=== PATIENT | male | born 1960 | race African-American/Black ===

== ENCOUNTER 2021-01-04 10:47 | Day surgery (SDC) | payer OTHER ==
[2020-12-28 15:45] VITALS: BMI 26.3
[2021-01-04] MEDS ORDERED: PROPOFOL 20 ML ONE ×5 (12:16)
[2021-01-04 13:09] VITALS: TEMP 97.8
[2021-01-04 14:24] VITALS: BP 116/74; PULSE 75
== END 2021-01-04 14:00 | disposition home or self-care (01) ==
LOC: FASU 10:47
PROVIDERS: ATTEND Internal Medicine Gastroenterology
PROC: 0DB78ZX Excision of Stomach, Pylorus, Via Natural or Artificial Opening Endoscopic, Diagnostic (ICD-10-PCS; 2021-01-04)
PROC: 0DB48ZX Excision of Esophagogastric Junction, Via Natural or Artificial Opening Endoscopic, Diagnostic (ICD-10-PCS; principal; 2021-01-04 12:45)
DX: K29.50 Unspecified chronic gastritis without bleeding (principal); K21.9 Gastro-esophageal reflux disease without esophagitis; K22.8 Other specified diseases of esophagus; K22.70 Barrett's esophagus without dysplasia; K31.89 Other diseases of stomach and duodenum
CPT/HCPCS: 88305-TC; 88342-TC

== ENCOUNTER 2021-04-24 04:28 | Day surgery (SDC) | payer OTHER ==
[2021-04-23 12:54] VITALS: BMI 25.7
[2021-04-24] MEDS ORDERED: ROPIVACAINE HCL 0.5% 30ML VIAL ONE (08:49)
[2021-04-24] MEDS ORDERED: MIDAZOLAM HCL 2 MG/2 ML SINGLE DOSE VIAL ONE ×2 (08:50)
[2021-04-24] MEDS ORDERED: PROPOFOL 20 ML ONE ×2 (09:19)
[2021-04-24] MEDS ORDERED: LIDOCAINE HCL/PF 2% SDV 5ML VIAL ONE (09:20)
[2021-04-24] MEDS ORDERED: DEXAMETHASONE SOD PHOSPHATE 4 MG/1 ML VIAL ONE (09:20)
[2021-04-24] MEDS ORDERED: ceFAZolin SODIUM 1 GM VIAL ONE (09:42)
[2021-04-24] MEDS ORDERED: ceFAZolin 2 GRAM PREMIX BAG IVPB ONE (09:53)
[2021-04-24] MEDS ORDERED: ONDANSETRON 4 MG/2 ML VIAL IVPUSH PRN (10:45)
[2021-04-24] MEDS ORDERED: LACTATED RINGERS SOLUTION 1,000 ML IV SCH (10:45)
[2021-04-24] MEDS ORDERED: oxyCODONE HCL 5 MG TABLET PO PRN ×2 (10:45)
[2021-04-24] MEDS: LABETALOL HCL 5 MG/1 ML (100MG/20 ML VIAL) IVPUSH PRN ×2 (11:20→11:30)
[2021-04-24 13:05] VITALS: TEMP 97.2
[2021-04-24 13:51] VITALS: BP 156/88; PULSE 83
== END 2021-04-24 14:00 | disposition home or self-care (01) ==
LOC: JASU-SURG 04:28
PROVIDERS: ATTEND Orthopaedic Surgery
PROC: 0RNK4ZZ Release Left Shoulder Joint, Percutaneous Endoscopic Approach (ICD-10-PCS; 2021-04-24)
PROC: 0LQ24ZZ Repair Left Shoulder Tendon, Percutaneous Endoscopic Approach (ICD-10-PCS; principal; 2021-04-24 09:30)
PROC: 0LU24JZ Supplement Left Shoulder Tendon with Synthetic Substitute, Percutaneous Endoscopic Approach (ICD-10-PCS; 2021-04-24 09:30)
DX: M75.102 Unspecified rotator cuff tear or rupture of left shoulder, not specified as traumatic (principal)
CPT/HCPCS: 36415; 84132; 94760

== ENCOUNTER 2021-05-31 05:04 | Day surgery (SDC) | payer OTHER ==
[2021-05-29 10:02] VITALS: BMI 26.7
[~2021-05-31 05:04] MED LIST: HEPARIN NA (PORCINE) 5,000 UNITS/ML 1ML VIAL SQ ONE; LIDOCAINE HCL 1%, 10 MG/ML (50 mL VIAL) PNB ONE
[2021-05-31] MEDS ORDERED: LIDOCAINE HCL 1%, 10 MG/ML (20ML VIAL) ONE (13:03)
[2021-05-31] MEDS ORDERED: HEPARIN NA (PORCINE) 5,000 UNITS/ML 1ML VIAL ONE (13:03)
[2021-05-31] MEDS ORDERED: PAPAVERINE HCL 30 MG/1 ML 10 ML VIAL NR ONE (13:03)
[2021-05-31] MEDS ORDERED: POVIDONE-IODINE OINTMENT 10% - 28.4 GM TUBE ONE (13:17)
[2021-05-31 13:56] LABS: BASO % 0.5 % (0-2.0); HEMATOCRIT 32.6 % (35.4-49); HEMOGLOBIN 10.3 GM/dL (11.7-16.9); LYMPH % 22.8 % (8-40); MCH 24.7 pg (25.7-33.7); MCHC 31.7 g/dl (32.0-35.9); MEAN CELL VOLUME 77.7 fl (80-96); MEAN PLT VOLUME 7.3 fl (7.5-11.1); MONO % 8.7 % (3.8-10.2); PLATELET COUNT 265 10^3/uL (134-434); RDW 18.6 % (11.9-15.9); WHITE BLOOD COUNT 5.2 K/mm3 (4.0-10.0)
[2021-05-31] MEDS ORDERED: LIDOCAINE HCL/PF 2% SDV 5ML VIAL ONE (14:10)
[2021-05-31] MEDS ORDERED: PROPOFOL 20 ML ONE (14:10)
[2021-05-31] MEDS ORDERED: ceFAZolin SODIUM 1 GM VIAL ONE (14:15)
[2021-05-31] MEDS ORDERED: LIDOCAINE HCL 1%, 10 MG/ML (50 mL VIAL) PNB ONE ×2 (14:35)
[2021-05-31] MEDS ORDERED: HEPARIN NA (PORCINE) 5,000 UNITS/ML 1ML VIAL SQ ONE (14:35)
[2021-05-31] MEDS ORDERED: ACETAMINOPHEN WITH CODEINE 300MG/30MG TABLET PO PRN (16:56)
[2021-05-31] MEDS ORDERED: ONDANSETRON 4 MG/2 ML VIAL IVPUSH PRN (17:34)
[2021-05-31] MEDS ORDERED: oxyCODONE HCL 5 MG TABLET PO PRN (17:34)
[2021-05-31] MEDS ORDERED: oxyCODONE HCL 5 MG TABLET ONE (17:40)
[2021-05-31 17:48] VITALS: PULSE 80
[2021-05-31 18:33] VITALS: BP 150/80; TEMP 98
== END 2021-05-31 18:30 | disposition home or self-care (01) ==
LOC: JASU-SURG 05:04
PROVIDERS: ATTEND Surgery
PROC: 05WY03Z Revision of Infusion Device in Upper Vein, Open Approach (ICD-10-PCS; principal; 2021-05-31 15:00)
DX: T82.858A Stenosis of other vascular prosthetic devices, implants and grafts, initial encounter (principal); Y83.2 Surgical operation with anastomosis, bypass or graft as the cause of abnormal reaction of the patient, or of later complication, without mention of misadventure at the time of the procedure; I12.0 Hypertensive chronic kidney disease with stage 5 chronic kidney disease or end stage renal disease; N18.6 End stage renal disease; Z99.2 Dependence on renal dialysis
CPT/HCPCS: 36415; 84132; 85025; 94760; J1644

== ENCOUNTER 2022-03-21 10:29 | Day surgery (SDC) | payer OTHER, BC ==
[2022-03-19 15:41] VITALS: BMI 25.7
[2022-03-21 11:27] VITALS: TEMP 97.8
[2022-03-21 11:49] VITALS: BP 106/69; PULSE 67
== END 2022-03-21 13:00 | disposition left against medical advice (07) ==
LOC: FASU-ENDO 10:29
PROVIDERS: ATTEND Internal Medicine Gastroenterology
PROC: 0DJD8ZZ Inspection of Lower Intestinal Tract, Via Natural or Artificial Opening Endoscopic (ICD-10-PCS; principal; 2022-03-21 10:56)
DX: Z12.11 Encounter for screening for malignant neoplasm of colon (principal); K64.1 Second degree hemorrhoids; K57.30 Diverticulosis of large intestine without perforation or abscess without bleeding

== ENCOUNTER 2023-11-25 10:56 | Inpatient (IN) | payer OTHER, BC ==
[2023-11-25 12:54] LABS: INR 1.12 (0.83-1.09)
[2023-11-25 12:57] LABS: ACTIVATED PTT 30.9 SECONDS (25.2-36.5)
[2023-11-25 12:59] LABS: MCH 21.4 pg (25.7-33.7); MCHC 31.4 g/dl (32.0-35.9); MEAN CELL VOLUME 68.2 fl (80-96); MEAN PLT VOLUME 8.3 fl (7.5-11.1); PLATELET COUNT 269 10^3/uL (134-434); RBC 2.64 M/mm3 (4.00-5.60); RDW 24.1 % (11.9-15.9)
[2023-11-25 13:05] LABS: HEMOGLOBIN 5.7 GM/dL (11.7-16.9)
[2023-11-25] MEDS ORDERED: ACETAMINOPHEN WITH CODEINE 300MG/30MG TABLET PO PRN (13:22)
[2023-11-25 13:26] LABS: CHLORIDE 104 mmol/L (98-107); POTASSIUM 5.1 mmol/L (3.5-5.1); SODIUM 141 mmol/L (136-145)
[2023-11-25 13:28] LABS: ANION GAP 12 mmol/L (4-13); BLOOD UREA NITROGEN 59.7 mg/dL (7-18); CALCIUM 8.1 mg/dL (8.5-10.1); CO2 26 mmol/L (21-32); GLUCOSE,RANDOM 98 mg/dL (74-106)
[2023-11-25 13:32] LABS: SGOT/AST 32 U/L (15-37); SGPT/ALT 40 U/L (13-61)
[2023-11-25 13:33] LABS: BILIRUBIN,TOTAL 0.3 mg/dL (0.2-1); TOT PROT 6.4 g/dl (6.4-8.2)
[2023-11-25 13:34] LABS: ALK PHOS 88 U/L (45-117)
[2023-11-25 13:37] LABS: CREATININE 16.3 mg/dL (0.55-1.3)
[2023-11-25] MEDS ORDERED: SODIUM CHLORIDE 250 ML IV PRN (13:48)
[2023-11-25 13:49] LABS: ANISOCYTOSIS 2+; MACROCYTOSIS 0
[2023-11-25 13:50] LABS: PLATELET ESTIMATE ADEQUATE
[2023-11-25] MEDS ORDERED: PREGABALIN 100 MG CAPSULE PO SCH (14:00)
[2023-11-25] MEDS ORDERED: FUROSEMIDE 40 MG/4 ML INJECTABLE VIAL ONE (14:06)
[2023-11-25] MEDS: FUROSEMIDE 40 MG/4 ML INJECTABLE VIAL IVPUSH ONE (14:09)
[2023-11-25 14:32] LABS: IRON SERUM 15 ug/dL (50-175); TOTAL IRON BINDING CAPACITY 284 ug/dL (250-450)
[2023-11-25] MEDS ORDERED: amLODIPine BESYLATE 10 MG TABLET (FP) ONE (21:39)
[2023-11-25] MEDS ORDERED: ATORVASTATIN CA 10 MG TABLET (FP) ONE (21:40)
[2023-11-25] MEDS ORDERED: ALPRAZolam 0.25 MG TABLET ONE (21:46)
[2023-11-25] MEDS: ATORVASTATIN CA 10 MG TABLET (FP) PO SCH (21:51)
[2023-11-25] MEDS: amLODIPine BESYLATE 10 MG TABLET (FP) PO SCH (21:51)
[2023-11-25] MEDS: ALPRAZolam 0.25 MG TABLET PO SCH (21:52)
[2023-11-25] MEDS: GABAPENTIN 100 MG CAPSULE PO SCH (22:32)
[2023-11-26 00:05] LABS: HEMATOCRIT 22.3 % (35.4-49); HEMOGLOBIN 7.2 GM/dL (11.7-16.9); MCH 22.8 pg (25.7-33.7); MCHC 32.4 g/dl (32.0-35.9); MEAN CELL VOLUME 70.5 fl (80-96); MEAN PLT VOLUME 7.7 fl (7.5-11.1); PLATELET COUNT 247 10^3/uL (134-434); RBC 3.16 M/mm3 (4.00-5.60); RDW 23.8 % (11.9-15.9); WHITE BLOOD COUNT 5.5 K/mm3 (4.0-10.0)
[2023-11-26 00:09] LABS: ADD RBC MORPHOLOGY YES
[2023-11-26] MEDS: FLUoxetine HCL 20 MG CAPSULE PO SCH (00:34)
[2023-11-26] MEDS: CALCIUM ACETATE 667 MG CAPSULE (FP) PO SCH ×2 (00:34→17:13)
[2023-11-26 03:21] LABS: ANISOCYTOSIS 2+; HELMET CELLS 1+; MACROCYTOSIS 0
[2023-11-26] MEDS ORDERED: PANTOPRAZOLE 40 MG TABLET PO ONE (07:15)
[2023-11-26 07:52] LABS: CHLORIDE 104 mmol/L (98-107); POTASSIUM 4.3 mmol/L (3.5-5.1); SODIUM 142 mmol/L (136-145)
[2023-11-26 07:57] LABS: ALBUMIN 2.9 g/dl (3.4-5.0); ANION GAP 10 mmol/L (4-13); BLOOD UREA NITROGEN 37.6 mg/dL (7-18); CALCIUM 7.9 mg/dL (8.5-10.1); CO2 29 mmol/L (21-32); GLUCOSE,RANDOM 85 mg/dL (74-106)
[2023-11-26 08:00] LABS: SGOT/AST 25 U/L (15-37); SGPT/ALT 37 U/L (13-61)
[2023-11-26 08:02] LABS: BILIRUBIN,TOTAL 0.4 mg/dL (0.2-1); HEMATOCRIT 23.2 % (35.4-49); HEMOGLOBIN 7.4 GM/dL (11.7-16.9); MCH 22.4 pg (25.7-33.7); MCHC 32.1 g/dl (32.0-35.9); MEAN CELL VOLUME 69.6 fl (80-96); MEAN PLT VOLUME 8.4 fl (7.5-11.1); PLATELET COUNT 275 10^3/uL (134-434); RBC 3.32 M/mm3 (4.00-5.60); RDW 23.6 % (11.9-15.9); TOT PROT 6.1 g/dl (6.4-8.2); WHITE BLOOD COUNT 5.5 K/mm3 (4.0-10.0)
[2023-11-26 08:03] LABS: ALK PHOS 87 U/L (45-117)
[2023-11-26 08:27] LABS: CREATININE 11.1 mg/dL (0.55-1.3)
[2023-11-26] MEDS: PANTOPRAZOLE 40 MG TABLET PO SCH (08:29)
[2023-11-26 09:15] LABS: ANISOCYTOSIS 2+; MACROCYTOSIS 0
[2023-11-26] MEDS ORDERED: FUROSEMIDE 40 MG TABLET (FP) PO SCH (10:00)
[2023-11-26] MEDS ORDERED: NAPH,MB-DB/K PH,MBDB POWDER PACKET ONE (12:38)
[2023-11-26 16:16] VITALS: BMI 21.7
[2023-11-27] MEDS ORDERED: SODIUM CHLORIDE 250 ML IV PRN (08:14)
[2023-11-27 08:42] LABS: HEMATOCRIT 21.3 % (35.4-49); MCH 22.1 pg (25.7-33.7); MCHC 31.6 g/dl (32.0-35.9); MEAN CELL VOLUME 69.8 fl (80-96); MEAN PLT VOLUME 8.4 fl (7.5-11.1); PLATELET COUNT 235 10^3/uL (134-434); RBC 3.06 M/mm3 (4.00-5.60); RDW 23.9 % (11.9-15.9); WHITE BLOOD COUNT 6.4 K/mm3 (4.0-10.0)
[2023-11-27 08:53] LABS: HEMOGLOBIN 6.7 GM/dL (11.7-16.9)
[2023-11-27 08:54] LABS: CHLORIDE 103 mmol/L (98-107); POTASSIUM 4.5 mmol/L (3.5-5.1); SODIUM 140 mmol/L (136-145)
[2023-11-27 08:58] LABS: ALBUMIN 2.8 g/dl (3.4-5.0); CALCIUM 8.2 mg/dL (8.5-10.1)
[2023-11-27 08:59] LABS: ANION GAP 12 mmol/L (4-13); BLOOD UREA NITROGEN 52.3 mg/dL (7-18); CO2 25 mmol/L (21-32); GLUCOSE,RANDOM 89 mg/dL (74-106)
[2023-11-27 09:01] LABS: SGPT/ALT 35 U/L (13-61)
[2023-11-27 09:02] LABS: SGOT/AST 19 U/L (15-37)
[2023-11-27 09:03] LABS: ALK PHOS 78 U/L (45-117); TOT PROT 5.7 g/dl (6.4-8.2)
[2023-11-27 09:04] LABS: BILIRUBIN,TOTAL 0.4 mg/dL (0.2-1)
[2023-11-27 09:06] LABS: CREATININE 12.3 mg/dL (0.55-1.3)
[2023-11-27] MEDS: IRON SUCROSE INJECTION 200 MG in SODIUM CHLORIDE 90 ML IVPB ONE (09:46)
[2023-11-27] MEDS: EPOETIN ALFA-EPBX 10,000 UNIT/ML VIAL SQ ONE (09:46)
[2023-11-27 12:12] LABS: BASO % 0.9 % (0-2.0); HEMOGLOBIN 8.4 GM/dL (11.7-16.9); LYMPH % 10.5 % (8-40); MCH 22.6 pg (25.7-33.7); MCHC 31.1 g/dl (32.0-35.9); MEAN CELL VOLUME 72.6 fl (80-96); MEAN PLT VOLUME 8.1 fl (7.5-11.1); MONO % 8.9 % (3.8-10.2); NEUT % 78.7 % (42.8-82.8); PLATELET COUNT 244 10^3/uL (134-434); RBC 3.72 M/mm3 (4.00-5.60); RDW 24.4 % (11.9-15.9); WHITE BLOOD COUNT 7.2 K/mm3 (4.0-10.0)
[2023-11-27 13:43] VITALS: RESP 18; TEMP 97.6
[2023-11-27 13:59] VITALS: BP 194/99; PULSE 97
== END 2023-11-27 18:52 | disposition left against medical advice (07) | DRG 811 ==
LOC: JER 10:56 → JERBED 14:16 → J8W 11-26 14:58
PROVIDERS: ADMIT Internal Medicine; ATTEND Internal Medicine
PROC: 30233N1 Transfusion of Nonautologous Red Blood Cells into Peripheral Vein, Percutaneous Approach (ICD-10-PCS; principal; 2023-11-25)
PROC: 5A1D70Z Performance of Urinary Filtration, Intermittent, Less than 6 Hours Per Day (ICD-10-PCS; 2023-11-25)
DX: D50.9 Iron deficiency anemia, unspecified (principal); N18.6 End stage renal disease; I12.0 Hypertensive chronic kidney disease with stage 5 chronic kidney disease or end stage renal disease; E11.9 Type 2 diabetes mellitus without complications; Z99.2 Dependence on renal dialysis; E78.5 Hyperlipidemia, unspecified; F41.8 Other specified anxiety disorders
CPT/HCPCS: 36415; 36430; 80053; 82728; 83540; 83550; 85025; 85027; 85610; 85730; 86704; 86705; 86803; 86850; 86900; 86901; 86922; 87340; 87517; 93005; 93010; 99285-25; J1756; P9058; Q5106

== ENCOUNTER 2024-02-26 09:11 | Day surgery (SDC) | payer OTHER ==
[2024-02-22 15:40] VITALS: BMI 23.5
[2024-02-26 10:51] VITALS: PULSE 73; RESP 16; TEMP 97.4
[2024-02-26 11:07] VITALS: BP 158/82
== END 2024-02-26 11:25 | disposition home or self-care (01) ==
LOC: FASU-ENDO 09:11
PROVIDERS: ATTEND Internal Medicine Gastroenterology
PROC: 0DB68ZX Excision of Stomach, Via Natural or Artificial Opening Endoscopic, Diagnostic (ICD-10-PCS; 2024-02-26)
PROC: 0DB48ZX Excision of Esophagogastric Junction, Via Natural or Artificial Opening Endoscopic, Diagnostic (ICD-10-PCS; principal; 2024-02-26 10:20)
DX: K31.9 Disease of stomach and duodenum, unspecified (principal); K92.1 Melena; K26.9 Duodenal ulcer, unspecified as acute or chronic, without hemorrhage or perforation
CPT/HCPCS: 88305-TC; 88342-TC

== ENCOUNTER 2024-06-05 16:21 | Inpatient (IN) | payer BC, OTHER ==
[2024-06-05 18:08] LABS: BASO % 0.7 % (0-2.0); EOS % 2.4 % (0-4.5); HEMATOCRIT 25.5 % (35.4-49); HEMOGLOBIN 7.8 GM/dL (11.7-16.9); LYMPH % 9.2 % (8-40); MCH 21.6 pg (25.7-33.7); MCHC 30.8 g/dl (32.0-35.9); MEAN CELL VOLUME 70.2 fl (80-96); NEUT % 72.7 % (42.8-82.8); PLATELET COUNT 232 10^3/uL (134-434); RBC 3.63 M/mm3 (4.00-5.60); WHITE BLOOD COUNT 5.9 K/mm3 (4.0-10.0)
[2024-06-05 18:40] LABS: CHLORIDE 106 mmol/L (98-107); POTASSIUM 3.6 mmol/L (3.5-5.1); SODIUM 143 mmol/L (136-145)
[2024-06-05 18:42] LABS: CALCIUM 8.5 mg/dL (8.5-10.1)
[2024-06-05 18:43] LABS: ALBUMIN 2.7 g/dl (3.4-5.0); ANION GAP 8 mmol/L (4-13); BLOOD UREA NITROGEN 29.4 mg/dL (7-18); CO2 29 mmol/L (21-32); GLUCOSE,RANDOM 62 mg/dL (74-106)
[2024-06-05 18:46] LABS: SGOT/AST 11 U/L (15-37); SGPT/ALT < 6 U/L (13-61)
[2024-06-05 18:48] LABS: BILIRUBIN,TOTAL 0.3 mg/dL (0.2-1); TOT PROT 6.4 g/dl (6.4-8.2)
[2024-06-05 18:49] LABS: ALK PHOS 85 U/L (45-117)
[2024-06-05 18:50] LABS: CREATININE 7.9 mg/dL (0.55-1.3)
[2024-06-05 19:32] LABS: HIV INTERPRETATION NEGATIVE (NEGATIVE)
[2024-06-05] MEDS ORDERED: PIPERACILLIN/TAZOB 4.5 GM 4.5 GM/100 ML BAG IVPB ONE (20:27)
[2024-06-05] MEDS: PIPERACILLIN/TAZOB 4.5 GM 4.5 GM in DEXTROSE 5%-WATER 100 ML IVPB ONE (20:40)
[2024-06-05] MEDS ORDERED: VANCOMYCIN/WATER 1250 MG 1,250 MG/250 ML BAG IVPB ONE (21:03)
[2024-06-05] MEDS: VANCOMYCIN/WATER 1250 MG 1,250 MG/250 ML BAG IVPB ONE (21:12)
[2024-06-05 21:15] LABS: ERYTHROCYTE SEDIMENTATION RATE 44 mm/hr (0-20)
[2024-06-05] MEDS ORDERED: DOCUSATE SODIUM 100 MG CAPSULE (FP) PO PRN (22:20)
[2024-06-05] MEDS ORDERED: ACETAMINOPHEN 325 MG TABLET (FP) PO PRN (22:20)
[2024-06-06] MEDS ORDERED: PIPERACILLIN/TAZOB 2.25 GM 2.25 GM in DEXTROSE 5%-WATER - 50 ML IVPB SCH (02:00)
[2024-06-06] MEDS ORDERED: PIPERACILLIN/TAZOB 2.25 GM 2.25 GM/50 ML BAG IVPB ONE (03:05)
[2024-06-06] MEDS: PIPERACILLIN/TAZOB 2.25 GM 2.25 GM in DEXTROSE 5%-WATER - 50 ML IVPB SCH (03:18)
[2024-06-06] MEDS: oxyCODONE HCL 5 MG TABLET PO PRN (05:33)
[2024-06-06] MEDS: INSULIN ASPART SLIDING SCALE (NOVOLOG) 1 VIAL SQ SCH (06:46)
[2024-06-06 09:21] LABS: BASO % 0.7 % (0-2.0); EOS % 2.6 % (0-4.5); HEMATOCRIT 25.7 % (35.4-49); MCH 22.1 pg (25.7-33.7); MCHC 31.1 g/dl (32.0-35.9); MEAN CELL VOLUME 70.9 fl (80-96); MEAN PLT VOLUME 8.2 fl (7.5-11.1); MONO % 12.1 % (3.8-10.2); NEUT % 72.6 % (42.8-82.8); PLATELET COUNT 233 10^3/uL (134-434); RBC 3.62 M/mm3 (4.00-5.60); RDW 29.7 % (11.9-15.9); WHITE BLOOD COUNT 5.9 K/mm3 (4.0-10.0)
[2024-06-06 09:28] LABS: INR 0.96 (0.83-1.09); PROTHROMBIN TIME (PATIENT) 10.9 SEC (9.7-13.0)
[2024-06-06 09:31] LABS: ACTIVATED PTT 30.7 SECONDS (25.2-36.5)
[2024-06-06 09:45] LABS: CHLORIDE 104 mmol/L (98-107); POTASSIUM 4.1 mmol/L (3.5-5.1); SODIUM 141 mmol/L (136-145)
[2024-06-06 09:46] LABS: BLOOD UREA NITROGEN 34.1 mg/dL (7-18)
[2024-06-06 09:48] LABS: CALCIUM 8.7 mg/dL (8.5-10.1)
[2024-06-06 09:49] LABS: ANION GAP 10 mmol/L (4-13); CO2 27 mmol/L (21-32); GLUCOSE,RANDOM 115 mg/dL (74-106); MAGNESIUM 2.3 mg/dL (1.8-2.4)
[2024-06-06] MEDS: FUROSEMIDE 40 MG TABLET (FP) PO SCH (09:51)
[2024-06-06] MEDS: PANTOPRAZOLE 40 MG TABLET PO SCH (09:51)
[2024-06-06] MEDS: CALCIUM ACETATE 667 MG CAPSULE (FP) PO SCH (09:51)
[2024-06-06 09:53] LABS: CREATININE 8.5 mg/dL (0.55-1.3); PHOSPHOROUS 3.1 mg/dL (2.5-4.9)
[2024-06-06] MEDS ORDERED: SODIUM CHLORIDE 250 ML IV PRN (10:48)
[2024-06-06] MEDS: PREGABALIN 100 MG CAPSULE PO SCH (13:37)
[2024-06-06] MEDS: HEPARIN NA (PORCINE) 5,000 UNITS/ML 1ML VIAL SQ SCH (13:38)
[2024-06-06] MEDS ORDERED: CEFTRIAXONE 2 GM in SODIUM CHLORIDE 100 ML IVPB SCH (13:45)
[2024-06-06 14:44] VITALS: RESP 18
[2024-06-06] MEDS: HEPARIN NA (PORCINE) 5,000 UNITS/ML 1ML VIAL IVPUSH ONE (17:00)
[2024-06-06] MEDS: EPOETIN ALFA-EPBX 10,000 UNIT/ML VIAL SQ ONE (19:28)
[2024-06-06] MEDS: amLODIPine BESYLATE 10 MG TABLET (FP) PO SCH (21:17)
[2024-06-06] MEDS: ATORVASTATIN CA 10 MG TABLET (FP) PO SCH (21:20)
[2024-06-06] MEDS: FLUoxetine HCL 20 MG CAPSULE PO SCH (21:20)
[2024-06-06] MEDS: CEFTRIAXONE 2 GM in SODIUM CHLORIDE 100 ML IVPB SCH (21:21)
[2024-06-06] MEDS ORDERED: amLODIPine BESYLATE 10 MG TABLET (FP) PO SCH (22:00)
[2024-06-06] MEDS ORDERED: ATORVASTATIN CA 10 MG TABLET (FP) PO SCH (22:00)
[2024-06-06] MEDS ORDERED: FLUoxetine HCL 20 MG CAPSULE PO SCH (22:00)
[2024-06-07] MEDS: KETOROLAC TROMETHAMINE 15 MG/ML VIAL IVPUSH PRN (04:54)
[2024-06-07] MEDS ORDERED: ZOLPIDEM TARTRATE 5 MG TABLET PO PRN (09:18)
[2024-06-07 09:58] LABS: BASO % 0.9 % (0-2.0); EOS % 1.9 % (0-4.5); HEMATOCRIT 29.5 % (35.4-49); HEMOGLOBIN 9.1 GM/dL (11.7-16.9); LYMPH % 9.2 % (8-40); MCH 21.9 pg (25.7-33.7); MEAN CELL VOLUME 70.7 fl (80-96); MEAN PLT VOLUME 8.1 fl (7.5-11.1); MONO % 11.9 % (3.8-10.2); NEUT % 76.1 % (42.8-82.8); PLATELET COUNT 275 10^3/uL (134-434); RBC 4.18 M/mm3 (4.00-5.60); RDW 29.3 % (11.9-15.9); WHITE BLOOD COUNT 6.1 K/mm3 (4.0-10.0)
[2024-06-07 10:18] LABS: POTASSIUM 4.2 mmol/L (3.5-5.1)
[2024-06-07 10:38] LABS: ALBUMIN 2.9 g/dl (3.4-5.0); BLOOD UREA NITROGEN 21.1 mg/dL (7-18)
[2024-06-07 10:41] LABS: CREATININE 6.1 mg/dL (0.55-1.3)
[2024-06-07 10:42] LABS: BILIRUBIN,TOTAL 0.3 mg/dL (0.2-1)
[2024-06-07 10:43] LABS: TOT PROT 7.2 g/dl (6.4-8.2)
[2024-06-07] MEDS: COLLAGENASE CLOSTRIDIUM HIST. 30 GRAMS TUBE TP SCH (13:21)
[2024-06-07] MEDS: ALPRAZolam 0.25 MG TABLET PO SCH (22:06)
[2024-06-08] MEDS ORDERED: SODIUM CHLORIDE 250 ML IV PRN (08:03)
[2024-06-08 09:16] LABS: HEMATOCRIT 25.8 % (35.4-49); HEMOGLOBIN 8.1 GM/dL (11.7-16.9); MCH 22.3 pg (25.7-33.7); MCHC 31.4 g/dl (32.0-35.9); MEAN CELL VOLUME 70.8 fl (80-96); MEAN PLT VOLUME 7.9 fl (7.5-11.1); PLATELET COUNT 239 10^3/uL (134-434); RBC 3.65 M/mm3 (4.00-5.60); RDW 29.2 % (11.9-15.9); WHITE BLOOD COUNT 5.1 K/mm3 (4.0-10.0)
[2024-06-08] MEDS: HEPARIN NA (PORCINE) 5,000 UNITS/ML 1ML VIAL IVPUSH ONE (09:29)
[2024-06-08] MEDS: EPOETIN ALFA-EPBX 10,000 UNIT/ML VIAL SQ ONE (09:30)
[2024-06-08 09:36] LABS: CHLORIDE 104 mmol/L (98-107); POTASSIUM 3.8 mmol/L (3.5-5.1); SODIUM 141 mmol/L (136-145)
[2024-06-08 09:37] LABS: CALCIUM 8.7 mg/dL (8.5-10.1)
[2024-06-08 09:38] LABS: ANION GAP 8 mmol/L (4-13); BLOOD UREA NITROGEN 29.1 mg/dL (7-18); CO2 30 mmol/L (21-32); GLUCOSE,RANDOM 106 mg/dL (74-106)
[2024-06-08 09:45] LABS: CREATININE 7.9 mg/dL (0.55-1.3)
[2024-06-08 10:56] VITALS: BMI 21.0
[2024-06-09 09:39] LABS: BASO % 0.5 % (0-2.0); EOS % 2.9 % (0-4.5); HEMATOCRIT 29.3 % (35.4-49); HEMOGLOBIN 9.1 GM/dL (11.7-16.9); LYMPH % 8.7 % (8-40); MCH 22.1 pg (25.7-33.7); MEAN CELL VOLUME 71.2 fl (80-96); MONO % 11.6 % (3.8-10.2); NEUT % 76.3 % (42.8-82.8); PLATELET COUNT 253 10^3/uL (134-434); RBC 4.11 M/mm3 (4.00-5.60); RDW 30.3 % (11.9-15.9); WHITE BLOOD COUNT 5.2 K/mm3 (4.0-10.0)
[2024-06-09 09:57] LABS: POTASSIUM 3.8 mmol/L (3.5-5.1)
[2024-06-09 10:03] LABS: ALBUMIN 2.9 g/dl (3.4-5.0); CALCIUM 8.9 mg/dL (8.5-10.1)
[2024-06-09 10:04] LABS: BLOOD UREA NITROGEN 26.5 mg/dL (7-18)
[2024-06-09 10:07] LABS: CREATININE 6.5 mg/dL (0.55-1.3)
[2024-06-09 10:08] LABS: BILIRUBIN,TOTAL 0.2 mg/dL (0.2-1); TOT PROT 7.2 g/dl (6.4-8.2)
[2024-06-09 15:36] LABS: HEPATITIS B SURFACE AG MATERN NON-REACTIVE (NONREACTIVE)
[2024-06-10] MEDS ORDERED: SODIUM CHLORIDE 250 ML IV PRN (08:23)
[2024-06-10] MEDS: HEPARIN NA (PORCINE) 5,000 UNITS/ML 1ML VIAL IVPUSH ONE (08:53)
[2024-06-10] MEDS: HEPARIN NA (PORCINE) 5,000 UNITS/ML 1ML VIAL IVPUSH SCH (09:00)
[2024-06-10] MEDS: EPOETIN ALFA-EPBX 10,000 UNIT/ML VIAL SQ ONE (09:28)
[2024-06-10 10:02] LABS: HEMATOCRIT 24.5 % (35.4-49); HEMOGLOBIN 7.7 GM/dL (11.7-16.9); MCH 22.3 pg (25.7-33.7); MCHC 31.4 g/dl (32.0-35.9); MEAN CELL VOLUME 70.9 fl (80-96); MEAN PLT VOLUME 8.1 fl (7.5-11.1); PLATELET COUNT 218 10^3/uL (134-434); RBC 3.45 M/mm3 (4.00-5.60); WHITE BLOOD COUNT 4.8 K/mm3 (4.0-10.0)
[2024-06-10 10:11] LABS: CHLORIDE 105 mmol/L (98-107); POTASSIUM 4.2 mmol/L (3.5-5.1); SODIUM 142 mmol/L (136-145)
[2024-06-10 10:16] LABS: ALBUMIN 2.6 g/dl (3.4-5.0); ANION GAP 7 mmol/L (4-13); BLOOD UREA NITROGEN 47.2 mg/dL (7-18); CALCIUM 8.6 mg/dL (8.5-10.1); CO2 30 mmol/L (21-32)
[2024-06-10 10:17] LABS: GLUCOSE,RANDOM 134 mg/dL (74-106)
[2024-06-10 10:20] LABS: SGOT/AST 16 U/L (15-37); SGPT/ALT 9 U/L (13-61)
[2024-06-10 10:21] LABS: BILIRUBIN,TOTAL 0.5 mg/dL (0.2-1)
[2024-06-10 10:22] LABS: CREATININE 8.3 mg/dL (0.55-1.3); TOT PROT 6.2 g/dl (6.4-8.2)
[2024-06-10 10:23] LABS: ALK PHOS 85 U/L (45-117)
[2024-06-10 16:52] VITALS: BP 134/82; PULSE 78; TEMP 98.4
== END 2024-06-10 18:00 | DRG 638 ==
LOC: JER 16:21 → JERBED 18:40 → OBSVTOIN 22:21 → J6S 06-06 04:21
PROVIDERS: ADMIT Internal Medicine; ATTEND Internal Medicine
PROC: 5A1D70Z Performance of Urinary Filtration, Intermittent, Less than 6 Hours Per Day (ICD-10-PCS; principal; 2024-06-10)
DX: E11.621 Type 2 diabetes mellitus with foot ulcer (principal); I12.0 Hypertensive chronic kidney disease with stage 5 chronic kidney disease or end stage renal disease; L97.419 Non-pressure chronic ulcer of right heel and midfoot with unspecified severity; M84.474A Pathological fracture, right foot, initial encounter for fracture; N18.6 End stage renal disease; E78.5 Hyperlipidemia, unspecified; F17.200 Nicotine dependence, unspecified, uncomplicated; K21.9 Gastro-esophageal reflux disease without esophagitis; E11.40 Type 2 diabetes mellitus with diabetic neuropathy, unspecified; F32.A Depression, unspecified; X58.XXXA Exposure to other specified factors, initial encounter; Y93.9 Activity, unspecified; Y92.89 Other specified places as the place of occurrence of the external cause; Y99.9 Unspecified external cause status; Z99.2 Dependence on renal dialysis
CPT/HCPCS: 36415; 73630-TC-RT-FY; 80048; 80053; 82962; 83036; 83735; 84100; 85025; 85027; 85610; 85651; 85730; 86140; 86705; 86708; 86803; 87070; 87205; 87340; 87389; 87517; 93005; 93010; 93926-TC; 97116-GP; 97162-GP; 99285-25; G0378; J1644; J2997; Q5106

== ENCOUNTER 2024-06-21 03:00 | Observation (INO) | payer OTHER ==
[2024-06-21 04:07] LABS: BASO % 0.8 % (0-2.0); EOS % 1.6 % (0-4.5); HEMATOCRIT 20.8 % (35.4-49); LYMPH % 12.9 % (8-40); MCH 22.7 pg (25.7-33.7); MCHC 31.3 g/dl (32.0-35.9); MEAN CELL VOLUME 72.4 fl (80-96); MEAN PLT VOLUME 8.2 fl (7.5-11.1); NEUT % 72.7 % (42.8-82.8); PLATELET COUNT 201 10^3/uL (134-434); RBC 2.87 M/mm3 (4.00-5.60); RDW 27.8 % (11.9-15.9); WHITE BLOOD COUNT 4.9 K/mm3 (4.0-10.0)
[2024-06-21 04:26] LABS: HEMOGLOBIN 6.5 GM/dL (11.7-16.9)
[2024-06-21 04:29] LABS: POTASSIUM 4.7 mmol/L (3.5-5.1)
[2024-06-21 04:31] LABS: ALBUMIN 2.8 g/dl (3.4-5.0); CALCIUM 8.6 mg/dL (8.5-10.1)
[2024-06-21 04:32] LABS: BLOOD UREA NITROGEN 36.3 mg/dL (7-18)
[2024-06-21 04:35] LABS: CREATININE 6.5 mg/dL (0.55-1.3)
[2024-06-21 04:36] LABS: BILIRUBIN,TOTAL 0.3 mg/dL (0.2-1); TOT PROT 6.6 g/dl (6.4-8.2)
[2024-06-21] MEDS ORDERED: DOCUSATE SODIUM 100 MG CAPSULE (FP) PO PRN (06:01)
[2024-06-21] MEDS ORDERED: ZOLPIDEM TARTRATE 5 MG TABLET PO PRN (06:01)
[2024-06-21] MEDS: INSULIN ASPART SLIDING SCALE (NOVOLOG) 1 VIAL SQ SCH (07:55)
[2024-06-21 09:09] VITALS: BMI 22.0
[2024-06-21] MEDS: FUROSEMIDE 40 MG TABLET (FP) PO SCH (10:02)
[2024-06-21] MEDS: CALCIUM ACETATE 667 MG CAPSULE (FP) PO SCH (10:02)
[2024-06-21] MEDS: PANTOPRAZOLE 40 MG TABLET PO SCH (10:02)
[2024-06-21 11:27] LABS: ANISOCYTOSIS 2+; MACROCYTOSIS 0; OVALOCYTE 1+
[2024-06-21] MEDS ORDERED: SODIUM CHLORIDE 250 ML IV PRN (12:04)
[2024-06-21] MEDS ORDERED: COLLAGENASE CLOSTRIDIUM HIST. 30 GRAMS TUBE TP SCH (12:30)
[2024-06-21] MEDS: EPOETIN ALFA-EPBX 10,000 UNIT, EPOETIN ALFA-EPBX 2,000 UNIT IVPUSH ONE (12:56)
[2024-06-21] MEDS: HEPARIN NA (PORCINE) 5,000 UNITS/ML 1ML VIAL IVPUSH ONE (12:56)
[2024-06-21] MEDS: EPOETIN ALFA-EPBX 10,000 UNIT/ML VIAL SQ ONE (14:36)
[2024-06-21] MEDS: PREGABALIN 100 MG CAPSULE PO SCH (14:52)
[2024-06-21] MEDS ORDERED: ACETAMINOPHEN 500 MG TABLET (FP) PO PRN (15:45)
[2024-06-21] MEDS: oxyCODONE HCL 5 MG TABLET PO PRN (17:25)
[2024-06-21 18:07] VITALS: TEMP 98.4
[2024-06-21] MEDS: MUPIROCIN CA 2% TOPICAL CREAM 15 GM TUBE TP SCH (19:17)
[2024-06-21 19:38] VITALS: BP 147/81; PULSE 79; RESP 18
[2024-06-21] MEDS ORDERED: ATORVASTATIN CA 10 MG TABLET (FP) PO SCH (22:00)
[2024-06-21] MEDS ORDERED: FLUoxetine HCL 20 MG CAPSULE PO SCH (22:00)
[2024-06-21] MEDS ORDERED: ALPRAZolam 0.25 MG TABLET PO SCH (22:00)
[2024-06-21] MEDS ORDERED: amLODIPine BESYLATE 10 MG TABLET (FP) PO SCH (22:00)
== END 2024-06-21 19:51 ==
LOC: JER 03:00 → JERBED 04:52 → J7W 06:37
PROVIDERS: ADMIT Internal Medicine; ATTEND Internal Medicine
PROC: 3E033GC Introduction of Other Therapeutic Substance into Peripheral Vein, Percutaneous Approach (ICD-10-PCS; principal; 2024-06-21)
PROC: 30233N1 Transfusion of Nonautologous Red Blood Cells into Peripheral Vein, Percutaneous Approach (ICD-10-PCS; 2024-06-21)
DX: R71.0 Precipitous drop in hematocrit (principal); I12.0 Hypertensive chronic kidney disease with stage 5 chronic kidney disease or end stage renal disease; N18.6 End stage renal disease; E11.22 Type 2 diabetes mellitus with diabetic chronic kidney disease; Z99.2 Dependence on renal dialysis; E78.5 Hyperlipidemia, unspecified; E66.2 Morbid (severe) obesity with alveolar hypoventilation; F41.9 Anxiety disorder, unspecified; Z98.84 Bariatric surgery status; K76.0 Fatty (change of) liver, not elsewhere classified; K21.9 Gastro-esophageal reflux disease without esophagitis; F17.210 Nicotine dependence, cigarettes, uncomplicated
CPT/HCPCS: 36415; 36430; 71045-TC-FY; 80053; 85025; 86850; 86900; 86901; 86922; 93005; 93010; 96374; 96375; 99285-25; G0378; J1644; P9058; Q5106

== ENCOUNTER 2024-07-07 00:58 | Emergency (ER) | payer OTHER ==
[2024-07-07 01:14] VITALS: BP 147/81; PULSE 77; RESP 16; TEMP 98.4; BMI 22.6
[2024-07-07] MEDS ORDERED: ACETAMINOPHEN INJECTION 100 ML ONE (01:50)
[2024-07-07] MEDS: ACETAMINOPHEN 1000 MG/100 ML BAG IVPB ONE (02:01)
[2024-07-07 02:04] LABS: EOS % 0.4 % (0-4.5); HEMOGLOBIN 7.2 GM/dL (11.7-16.9); LYMPH % 7.9 % (8-40); MCH 23.2 pg (25.7-33.7); MCHC 31.4 g/dl (32.0-35.9); MEAN CELL VOLUME 74.1 fl (80-96); MEAN PLT VOLUME 8.2 fl (7.5-11.1); MONO % 11.7 % (3.8-10.2); PLATELET COUNT 218 10^3/uL (134-434); RBC 3.11 M/mm3 (4.00-5.60); WHITE BLOOD COUNT 9.4 K/mm3 (4.0-10.0)
[2024-07-07 02:12] LABS: INR 1.1 (0.83-1.09); PROTHROMBIN TIME (PATIENT) 12.4 SEC (9.7-13.0)
[2024-07-07 02:15] LABS: ACTIVATED PTT 36.5 SECONDS (25.2-36.5)
[2024-07-07 02:34] LABS: CHLORIDE 101 mmol/L (98-107); POTASSIUM 5.2 mmol/L (3.5-5.1); SODIUM 139 mmol/L (136-145)
[2024-07-07 02:36] LABS: CALCIUM 8.7 mg/dL (8.5-10.1)
[2024-07-07 02:37] LABS: ALBUMIN 2.8 g/dl (3.4-5.0); ANION GAP 6 mmol/L (4-13); CO2 32 mmol/L (21-32); GLUCOSE,RANDOM 206 mg/dL (74-106); MAGNESIUM 2.7 mg/dL (1.8-2.4)
[2024-07-07 02:40] LABS: SGOT/AST 21 U/L (15-37); SGPT/ALT 18 U/L (13-61)
[2024-07-07 02:42] LABS: BILIRUBIN,TOTAL 0.3 mg/dL (0.2-1); TOT PROT 7.1 g/dl (6.4-8.2)
[2024-07-07 02:43] LABS: ALK PHOS 95 U/L (45-117)
[2024-07-07 02:45] LABS: N-TERMINAL BNP 12797.8 pg/ml (5-125)
[2024-07-07 02:57] LABS: CREATININE 9.2 mg/dL (0.55-1.3)
[2024-07-07 03:04] LABS: ANISOCYTOSIS 2+; MACROCYTOSIS 1+; OVALOCYTE 1+
== END 2024-07-07 05:52 ==
LOC: JER 00:58
PROC: 3E033NZ Introduction of Analgesics, Hypnotics, Sedatives into Peripheral Vein, Percutaneous Approach (ICD-10-PCS; principal; 2024-07-07)
DX: I13.2 Hypertensive heart and chronic kidney disease with heart failure and with stage 5 chronic kidney disease, or end stage renal disease (principal); N18.6 End stage renal disease; M79.89 Other specified soft tissue disorders; W10.8XXA Fall (on) (from) other stairs and steps, initial encounter
CPT/HCPCS: 36415; 71045-TC-FY; 72170-TC-FY; 73030-TC-LT-FY; 80053; 83735; 83880; 85025; 85610; 85730; 86850; 86900; 86901; 93005; 93010; 99285-25; J0131

== ENCOUNTER 2024-07-18 05:23 | Observation (INO) | payer OTHER ==
[2024-07-18 06:13] LABS: HEMATOCRIT 20.3 % (35.4-49); MCHC 30.3 g/dl (32.0-35.9); MEAN CELL VOLUME 72.7 fl (80-96); MEAN PLT VOLUME 7.8 fl (7.5-11.1); PLATELET COUNT 234 10^3/uL (134-434); RBC 2.79 M/mm3 (4.00-5.60); RDW 22.4 % (11.9-15.9); WHITE BLOOD COUNT 6.8 K/mm3 (4.0-10.0)
[2024-07-18 06:24] LABS: INR 1.02 (0.83-1.09); PROTHROMBIN TIME (PATIENT) 11.7 SEC (9.7-13.0)
[2024-07-18 06:27] LABS: ACTIVATED PTT 34.2 SECONDS (25.2-36.5)
[2024-07-18 06:47] LABS: HEMOGLOBIN 6.1 GM/dL (11.7-16.9)
[2024-07-18 07:32] LABS: CHLORIDE 103 mmol/L (98-107); POTASSIUM 3.9 mmol/L (3.5-5.1); SODIUM 144 mmol/L (136-145)
[2024-07-18 07:34] LABS: ALBUMIN 2.6 g/dl (3.4-5.0); ANION GAP 11 mmol/L (4-13); CALCIUM 8.4 mg/dL (8.5-10.1); CO2 29 mmol/L (21-32)
[2024-07-18 07:39] LABS: BILIRUBIN,TOTAL 0.2 mg/dL (0.2-1); BLOOD UREA NITROGEN 48.3 mg/dL (7-18); CREATININE 8.7 mg/dL (0.55-1.3); GLUCOSE,RANDOM 81 mg/dL (74-106); SGOT/AST 13 U/L (15-37); SGPT/ALT 12 U/L (13-61); TOT PROT 6.7 g/dl (6.4-8.2)
[2024-07-18 07:54] LABS: ALK PHOS 87 U/L (45-117)
[2024-07-18 08:48] LABS: ANISOCYTOSIS 2+; MACROCYTOSIS 0; TEAR DROP CELLS 1+
[2024-07-18] MEDS ORDERED: DOCUSATE SODIUM 100 MG CAPSULE (FP) PO PRN (10:12)
[2024-07-18] MEDS: PANTOPRAZOLE SODIUM 40 MG VIAL IVPUSH SCH (12:08)
[2024-07-18] MEDS ORDERED: PATIENT'S OWN MEDICATION (NON-FORMULARY) (Tranexamic Acid [Tranexamic Acid] 650 MG Tablet) PO SCH (12:30)
[2024-07-18 12:53] VITALS: RESP 18; BMI 23.1
[2024-07-18] MEDS ORDERED: SODIUM CHLORIDE 250 ML IV PRN (13:16)
[2024-07-18] MEDS: CALCIUM ACETATE 667 MG CAPSULE (FP) PO SCH (13:44)
[2024-07-18] MEDS: PREGABALIN 100 MG CAPSULE PO SCH (13:44)
[2024-07-18] MEDS: HEPARIN NA (PORCINE) 5,000 UNITS/ML 1ML VIAL IVPUSH ONE (15:32)
[2024-07-18] MEDS: EPOETIN ALFA-EPBX 20,000 UNIT/ML VIAL SQ ONE (16:16)
[2024-07-18] MEDS: INSULIN ASPART SLIDING SCALE (NOVOLOG) 1 VIAL SQ SCH ×2 (16:19→16:20)
[2024-07-18 17:32] LABS: TOTAL IRON BINDING CAPACITY 238 ug/dL (250-450)
[2024-07-18 17:33] LABS: IRON SERUM 23 ug/dL (50-175)
[2024-07-18] MEDS: amLODIPine BESYLATE 10 MG TABLET (FP) PO SCH (22:15)
[2024-07-18] MEDS: FUROSEMIDE 40 MG TABLET (FP) PO SCH (22:15)
[2024-07-18] MEDS: ATORVASTATIN CA 10 MG TABLET (FP) PO SCH (22:15)
[2024-07-18] MEDS: ALPRAZolam 0.25 MG TABLET PO SCH (22:15)
[2024-07-18] MEDS: FLUoxetine HCL 20 MG CAPSULE PO SCH (22:18)
[2024-07-18] MEDS: ZOLPIDEM TARTRATE 5 MG TABLET PO PRN (22:19)
[2024-07-19] MEDS: oxyCODONE HCL 5 MG TABLET PO ONE (00:38)
[2024-07-19 08:29] LABS: BASO % 0.9 % (0-2.0); HEMATOCRIT 27.3 % (35.4-49); HEMOGLOBIN 8.6 GM/dL (11.7-16.9); LYMPH % 11.8 % (8-40); MCH 23.8 pg (25.7-33.7); MCHC 31.3 g/dl (32.0-35.9); MEAN CELL VOLUME 75.9 fl (80-96); MEAN PLT VOLUME 8.2 fl (7.5-11.1); MONO % 13.3 % (3.8-10.2); PLATELET COUNT 275 10^3/uL (134-434); RDW 23.1 % (11.9-15.9); WHITE BLOOD COUNT 7.5 K/mm3 (4.0-10.0)
[2024-07-19 08:48] LABS: POTASSIUM 3.9 mmol/L (3.5-5.1)
[2024-07-19 08:52] LABS: ALBUMIN 2.8 g/dl (3.4-5.0); BLOOD UREA NITROGEN 26.3 mg/dL (7-18); CALCIUM 8.9 mg/dL (8.5-10.1); MAGNESIUM 2.3 mg/dL (1.8-2.4)
[2024-07-19 08:55] LABS: CREATININE 5.6 mg/dL (0.55-1.3)
[2024-07-19 08:56] LABS: PHOSPHOROUS 3.6 mg/dL (2.5-4.9)
[2024-07-19 08:57] LABS: BILIRUBIN,TOTAL 0.3 mg/dL (0.2-1); TOT PROT 7.3 g/dl (6.4-8.2)
[2024-07-19] MEDS: PANTOPRAZOLE 40 MG TABLET PO SCH (09:46)
[2024-07-19 11:47] VITALS: BP 152/83; PULSE 80; TEMP 98.4
== END 2024-07-19 11:29 ==
LOC: JER 05:23 → JERBED 06:43 → J7W 09:22
PROVIDERS: ADMIT Internal Medicine; ATTEND Nurse Practitioner Family
PROC: 3E023GC Introduction of Other Therapeutic Substance into Muscle, Percutaneous Approach (ICD-10-PCS; principal; 2024-07-18)
PROC: 3E033GC Introduction of Other Therapeutic Substance into Peripheral Vein, Percutaneous Approach (ICD-10-PCS; 2024-07-18)
PROC: 3E0337Z Introduction of Electrolytic and Water Balance Substance into Peripheral Vein, Percutaneous Approach (ICD-10-PCS; 2024-07-18)
PROC: 30233N1 Transfusion of Nonautologous Red Blood Cells into Peripheral Vein, Percutaneous Approach (ICD-10-PCS; 2024-07-18)
DX: I12.0 Hypertensive chronic kidney disease with stage 5 chronic kidney disease or end stage renal disease (principal); N18.6 End stage renal disease; D50.9 Iron deficiency anemia, unspecified; Z99.2 Dependence on renal dialysis; E11.9 Type 2 diabetes mellitus without complications; Z98.84 Bariatric surgery status; E66.01 Morbid (severe) obesity due to excess calories; Z85.51 Personal history of malignant neoplasm of bladder; K21.9 Gastro-esophageal reflux disease without esophagitis; E78.00 Pure hypercholesterolemia, unspecified; Z87.891 Personal history of nicotine dependence
CPT/HCPCS: 36415; 36430; 80053; 82728; 82962; 83036; 83540; 83550; 83735; 84100; 85025; 85610; 85730; 86803; 86850; 86900; 86901; 86922; 87340; 87517; 93005; 93010; 96372; 96374; 99285-25; G0378; J1644; P9038; P9058

== ENCOUNTER 2024-09-15 12:28 | Inpatient (IN) | payer OTHER ==
[2024-09-15] MEDS ORDERED: ACETAMINOPHEN INJECTION 100 ML ONE (13:45)
[2024-09-15] MEDS: ACETAMINOPHEN 1000 MG/100 ML BAG IVPB ONE (14:05)
[2024-09-15 14:48] LABS: BASO % 1.1 % (0-2.0); EOS % 0.6 % (0-4.5); HEMATOCRIT 24.3 % (35.4-49); HEMOGLOBIN 7.4 GM/dL (11.7-16.9); LYMPH % 9.9 % (8-40); MCH 21.6 pg (25.7-33.7); MCHC 30.3 g/dl (32.0-35.9); MEAN CELL VOLUME 71.4 fl (80-96); MONO % 10.5 % (3.8-10.2); NEUT % 77.9 % (42.8-82.8); PLATELET COUNT 271 10^3/uL (134-434); RBC 3.41 M/mm3 (4.00-5.60); WHITE BLOOD COUNT 6.7 K/mm3 (4.0-10.0)
[2024-09-15 15:19] LABS: CHLORIDE 100 mmol/L (98-107); SODIUM 136 mmol/L (136-145)
[2024-09-15] MEDS ORDERED: PANTOPRAZOLE SODIUM 40 MG VIAL ONE (15:19)
[2024-09-15 15:23] LABS: CALCIUM 8.2 mg/dL (8.5-10.1)
[2024-09-15 15:24] LABS: BLOOD UREA NITROGEN 91.5 mg/dL (7-18); CO2 23 mmol/L (21-32); GLUCOSE,RANDOM 137 mg/dL (74-106); MAGNESIUM 3.1 mg/dL (1.8-2.4)
[2024-09-15 15:26] LABS: SGPT/ALT 9 U/L (13-61)
[2024-09-15 15:27] LABS: IRON SERUM 22 ug/dL (50-175); SGOT/AST 14 U/L (15-37); TOTAL IRON BINDING CAPACITY 234 ug/dL (250-450)
[2024-09-15] MEDS: PANTOPRAZOLE SODIUM 40 MG VIAL IVPUSH ONE (15:27)
[2024-09-15 15:28] LABS: BILIRUBIN,TOTAL 0.3 mg/dL (0.2-1); TOT PROT 6.7 g/dl (6.4-8.2)
[2024-09-15 15:29] LABS: ALK PHOS 102 U/L (45-117)
[2024-09-15 15:31] LABS: ANISOCYTOSIS 2+; MACROCYTOSIS 0; TEAR DROP CELLS 1+
[2024-09-15 15:35] LABS: ANION GAP 13 mmol/L (4-13); CREATININE 16.8 mg/dL (0.55-1.3); POTASSIUM 6.5 mmol/L (3.5-5.1)
[2024-09-15] MEDS ORDERED: CALCIUM GLUCONATE 10% - 1,000 MG/10 ML VIAL ONE (16:08)
[2024-09-15] MEDS ORDERED: SODIUM ZIRCONIUM CYCLOSILICATE (LOKELMA) 10 GM PACKET ONE (16:08)
[2024-09-15 16:13] LABS: HIV INTERPRETATION NEGATIVE (NEGATIVE)
[2024-09-15] MEDS ORDERED: DEXTROSE 50%-WATER 25 GM/50 ML DISP.SYRIN ONE ×2 (16:48→18:12)
[2024-09-15] MEDS ORDERED: INSULIN REGULAR HUMAN 100 UNITS/ML *VIAL ONE (16:48)
[2024-09-15] MEDS: SODIUM ZIRCONIUM CYCLOSILICATE (LOKELMA) 5 GM PACKET PO ONE (16:56)
[2024-09-15] MEDS: CALCIUM GLUCONATE 10% - 1,000 MG/10 ML VIAL IVPB ONE (16:56)
[2024-09-15] MEDS: INSULIN REGULAR HUMAN 100 UNITS/ML *VIAL IVPUSH ONE (16:56)
[2024-09-15] MEDS: DEXTROSE 50%-WATER - 25 GM/50 ML VIAL IVPUSH ONE ×2 (16:56→18:26)
[2024-09-15] MEDS ORDERED: IRON SUCROSE INJECTION 200 MG in SODIUM CHLORIDE 100 ML IVPB ONE (17:00)
[2024-09-15] MEDS ORDERED: SODIUM CHLORIDE 250 ML IV PRN (20:49)
[2024-09-15 20:56] VITALS: RESP 18
[2024-09-15] MEDS: EPOETIN ALFA-EPBX 10,000 UNIT/ML VIAL SQ ONE (21:39)
[2024-09-15 22:41] VITALS: BMI 22.9
[2024-09-15] MEDS: PANTOPRAZOLE 40 MG TABLET PO SCH (22:53)
[2024-09-15] MEDS: ZOLPIDEM TARTRATE 5 MG TABLET PO ONE (23:14)
[2024-09-16] MEDS: CALCIUM ACETATE 667 MG CAPSULE (FP) PO SCH (00:52)
[2024-09-16] MEDS: ASPIRIN 81 MG CHEWABLE TABLETS PO ONE (00:52)
[2024-09-16] MEDS: amLODIPine BESYLATE 10 MG TABLET (FP) PO SCH ×3 (00:52→10:49)
[2024-09-16] MEDS: IRON SUCROSE INJECTION 200 MG in SODIUM CHLORIDE 100 ML IVPB ONE ×2 (02:37→11:53)
[2024-09-16] MEDS: ACETAMINOPHEN 500 MG TABLET (FP) PO ONE (05:11)
[2024-09-16] MEDS ORDERED: ALPRAZolam 0.25 MG TABLET PO PRN (08:01)
[2024-09-16] MEDS: oxyCODONE HCL 5 MG TABLET PO PRN (08:17)
[2024-09-16] MEDS: ALPRAZolam 0.25 MG TABLET PO PRN (08:19)
[2024-09-16] MEDS: PANTOPRAZOLE SODIUM 40 MG VIAL IVPUSH SCH (08:20)
[2024-09-16] MEDS: ZOLPIDEM TARTRATE 5 MG TABLET PO PRN (08:20)
[2024-09-16 09:10] VITALS: BP 160/91; PULSE 84; TEMP 98.1
[2024-09-16] MEDS ORDERED: FLUoxetine HCL 20 MG CAPSULE PO SCH (22:00)
[2024-09-17] MEDS ORDERED: IRON SUCROSE INJECTION 200 MG in SODIUM CHLORIDE 100 ML IVPB ONE (10:00)
== END 2024-09-16 12:33 | disposition left against medical advice (07) | DRG 640 ==
LOC: JER 12:28 → JERBED 17:01 → J4S 21:41
PROVIDERS: ADMIT Internal Medicine; ATTEND Internal Medicine
PROC: 5A1D70Z Performance of Urinary Filtration, Intermittent, Less than 6 Hours Per Day (ICD-10-PCS; principal; 2024-09-15)
DX: E87.5 Hyperkalemia (principal); N18.6 End stage renal disease; I12.0 Hypertensive chronic kidney disease with stage 5 chronic kidney disease or end stage renal disease; K92.1 Melena; Z99.2 Dependence on renal dialysis; E11.22 Type 2 diabetes mellitus with diabetic chronic kidney disease; D64.9 Anemia, unspecified; E78.5 Hyperlipidemia, unspecified; R53.1 Weakness; F17.210 Nicotine dependence, cigarettes, uncomplicated; Z98.84 Bariatric surgery status
CPT/HCPCS: 0241U-QW; 36415; 71045-TC-FY; 74177-TC; 80053; 82272; 82728; 82962; 83540; 83550; 83735; 83880; 84100; 84132; 84484; 85025; 86803; 86850; 86900; 86901; 87340; 87389; 93005; 93010; 99291; J0131; J1756; Q5106; Q9967

== ENCOUNTER 2024-09-23 08:17 | Day surgery (SDC) | payer OTHER ==
[2024-09-21 12:59] VITALS: BMI 22.0
[2024-09-23 10:25] VITALS: PULSE 68; RESP 16; TEMP 98.4
[2024-09-23 10:28] VITALS: BP 140/74
== END 2024-09-23 10:20 | disposition home or self-care (01) ==
LOC: FASU-ENDO 08:17
PROVIDERS: ATTEND Internal Medicine Gastroenterology
PROC: 0DB68ZX Excision of Stomach, Via Natural or Artificial Opening Endoscopic, Diagnostic (ICD-10-PCS; 2024-09-23)
PROC: 0DB48ZX Excision of Esophagogastric Junction, Via Natural or Artificial Opening Endoscopic, Diagnostic (ICD-10-PCS; 2024-09-23)
PROC: 0DB98ZX Excision of Duodenum, Via Natural or Artificial Opening Endoscopic, Diagnostic (ICD-10-PCS; principal; 2024-09-23 09:30)
DX: K92.1 Melena (principal); K21.00 Gastro-esophageal reflux disease with esophagitis, without bleeding; K31.9 Disease of stomach and duodenum, unspecified
CPT/HCPCS: 88305-TC; 88342-TC

== ENCOUNTER 2024-10-18 19:05 | Observation (INO) | payer OTHER, BC ==
[2024-10-18 19:23] VITALS: BMI 22.9
[2024-10-18 21:35] LABS: BASO % 0.6 % (0-2.0); EOS % 0.6 % (0-4.5); HEMATOCRIT 13.6 % (35.4-49); MCH 21.7 pg (25.7-33.7); MCHC 31.6 g/dl (32.0-35.9); MEAN CELL VOLUME 68.7 fl (80-96); MEAN PLT VOLUME 6.3 fl (7.5-11.1); MONO % 7.3 % (3.8-10.2); NEUT % 82.5 % (42.8-82.8); PLATELET COUNT 317 10^3/uL (134-434); RBC 1.98 M/mm3 (4.00-5.60); RDW 24.6 % (11.9-15.9); WHITE BLOOD COUNT 7.1 K/mm3 (4.0-10.0)
[2024-10-18 21:39] LABS: HEMOGLOBIN 4.3 GM/dL (11.7-16.9)
[2024-10-18 21:45] LABS: INR 1.13 (0.83-1.09); PROTHROMBIN TIME (PATIENT) 12.9 SEC (9.7-13.0)
[2024-10-18 21:48] LABS: ACTIVATED PTT 35.2 SECONDS (25.2-36.5)
[2024-10-18 22:02] LABS: CHLORIDE 98 mmol/L (98-107); POTASSIUM 3.7 mmol/L (3.5-5.1); SODIUM 138 mmol/L (136-145)
[2024-10-18 22:04] LABS: CALCIUM 8.6 mg/dL (8.5-10.1)
[2024-10-18 22:05] LABS: ANION GAP 9 mmol/L (4-13); BLOOD UREA NITROGEN 37.9 mg/dL (7-18); CO2 31 mmol/L (21-32); GLUCOSE,RANDOM 120 mg/dL (74-106)
[2024-10-18 22:08] LABS: PHOSPHOROUS 4.8 mg/dL (2.5-4.9); SGOT/AST 15 U/L (15-37); SGPT/ALT 15 U/L (13-61)
[2024-10-18 22:09] LABS: BILIRUBIN,TOTAL 0.3 mg/dL (0.2-1)
[2024-10-18 22:11] LABS: ALK PHOS 93 U/L (45-117); CREATININE 8.8 mg/dL (0.55-1.3)
[2024-10-18 22:39] LABS: ANISOCYTOSIS 3+; MACROCYTOSIS 0; OVALOCYTE 1+
[2024-10-18] MEDS ORDERED: PANTOPRAZOLE SODIUM 40 MG VIAL ONE (23:23)
[2024-10-18] MEDS: PANTOPRAZOLE SODIUM 40 MG VIAL IVPUSH ONE (23:30)
[2024-10-19 00:22] VITALS: PULSE 75; RESP 12; TEMP 98.1
[2024-10-19] MEDS ORDERED: oxyCODONE HCL 5 MG TABLET PO PRN (03:25)
[2024-10-19] MEDS ORDERED: GABAPENTIN 100 MG CAPSULE PO PRN (03:25)
[2024-10-19] MEDS ORDERED: ALPRAZolam 0.25 MG TABLET PO PRN (03:26)
[2024-10-19] MEDS ORDERED: amLODIPine BESYLATE 10 MG TABLET (FP) PO ONE (05:27)
[2024-10-19 05:34] VITALS: BP 170/80
[2024-10-19] MEDS ORDERED: hydrALAZINE HCL 20 MG/ML VIAL IVPUSH ONE (05:35)
[2024-10-19] MEDS ORDERED: CALCIUM ACETATE 667 MG CAPSULE (FP) PO SCH (07:00)
[2024-10-19] MEDS ORDERED: FUROSEMIDE 40 MG TABLET (FP) PO SCH (10:00)
[2024-10-19] MEDS ORDERED: PANTOPRAZOLE SODIUM 40 MG VIAL IVPUSH SCH ×2 (10:00)
[2024-10-19] MEDS ORDERED: VITAMIN B COMPLEX W/C COMBO TABLET (FP) PO SCH (10:00)
[2024-10-19] MEDS ORDERED: amLODIPine BESYLATE 10 MG TABLET (FP) PO SCH (22:00)
[2024-10-19] MEDS ORDERED: FLUoxetine HCL 20 MG CAPSULE PO SCH (22:00)
[2024-10-19] MEDS ORDERED: ATORVASTATIN CA 10 MG TABLET (FP) PO SCH (22:00)
== END 2024-10-19 07:33 | disposition left against medical advice (07) ==
LOC: JER 19:05 → JERBED 10-19 00:08
PROVIDERS: ADMIT Internal Medicine; ATTEND Internal Medicine
PROC: 30233N1 Transfusion of Nonautologous Red Blood Cells into Peripheral Vein, Percutaneous Approach (ICD-10-PCS; principal; 2024-10-19)
PROC: 3E033GC Introduction of Other Therapeutic Substance into Peripheral Vein, Percutaneous Approach (ICD-10-PCS; 2024-10-19)
DX: D64.9 Anemia, unspecified (principal); R06.09 Other forms of dyspnea; I12.0 Hypertensive chronic kidney disease with stage 5 chronic kidney disease or end stage renal disease; N18.6 End stage renal disease; Z99.2 Dependence on renal dialysis; K76.0 Fatty (change of) liver, not elsewhere classified; E78.5 Hyperlipidemia, unspecified; Z98.84 Bariatric surgery status; K64.9 Unspecified hemorrhoids
CPT/HCPCS: 0241U-QW; 36415; 36430; 71045-TC-FY; 80053; 82272; 82728; 83540; 83550; 83735; 84100; 84484; 85025; 85045; 85610; 85730; 86850; 86900; 86901; 86922; 93005; 93010; 96374; 99285-25; G0378; P9058

== ENCOUNTER 2024-10-25 05:38 | Observation (INO) | payer OTHER, BC ==
[2024-10-25 06:33] LABS: HEMATOCRIT 14.8 % (35.4-49); INR 1.07 (0.83-1.09); MCH 23.6 pg (25.7-33.7); MCHC 31.5 g/dl (32.0-35.9); MEAN CELL VOLUME 75.1 fl (80-96); MEAN PLT VOLUME 6.8 fl (7.5-11.1); PLATELET COUNT 274 10^3/uL (134-434); PROTHROMBIN TIME (PATIENT) 12.3 SEC (9.7-13.0); RBC 1.98 M/mm3 (4.00-5.60); RDW 28.5 % (11.9-15.9); WHITE BLOOD COUNT 5.9 K/mm3 (4.0-10.0)
[2024-10-25 06:36] LABS: ACTIVATED PTT 33.3 SECONDS (25.2-36.5)
[2024-10-25 06:53] LABS: POTASSIUM 3.6 mmol/L (3.5-5.1)
[2024-10-25 06:55] LABS: BLOOD UREA NITROGEN 25.1 mg/dL (7-18); CALCIUM 8.6 mg/dL (8.5-10.1)
[2024-10-25 06:59] LABS: CREATININE 7.1 mg/dL (0.55-1.3)
[2024-10-25 07:00] LABS: BILIRUBIN,TOTAL 0.3 mg/dL (0.2-1); TOT PROT 6.5 g/dl (6.4-8.2)
[2024-10-25 07:10] LABS: HEMOGLOBIN 4.7 GM/dL (11.7-16.9)
[2024-10-25 09:47] LABS: ANISOCYTOSIS 3+; MACROCYTOSIS 1+
[2024-10-25] MEDS ORDERED: FUROSEMIDE 40 MG TABLET (FP) ONE (09:53)
[2024-10-25] MEDS ORDERED: amLODIPine BESYLATE 10 MG TABLET (FP) ONE (09:54)
[2024-10-25] MEDS: FUROSEMIDE 40 MG TABLET (FP) PO ONE (10:05)
[2024-10-25] MEDS: amLODIPine BESYLATE 10 MG TABLET (FP) PO ONE (10:05)
[2024-10-25 16:17] VITALS: RESP 18; BMI 22.6
[2024-10-25] MEDS ORDERED: SODIUM CHLORIDE 250 ML IV PRN (16:47)
[2024-10-25 18:06] VITALS: BP 140/67; PULSE 75; TEMP 98.8
[2024-10-25 20:39] LABS: BASO % 0.5 % (0-2.0); EOS % 1.9 % (0-4.5); MCH 25.2 pg (25.7-33.7); MCHC 32.6 g/dl (32.0-35.9); MEAN CELL VOLUME 77.2 fl (80-96); MEAN PLT VOLUME 7.1 fl (7.5-11.1); MONO % 13.5 % (3.8-10.2); NEUT % 69.1 % (42.8-82.8); PLATELET COUNT 304 10^3/uL (134-434); RBC 2.73 M/mm3 (4.00-5.60); RDW 24.7 % (11.9-15.9); WHITE BLOOD COUNT 6.5 K/mm3 (4.0-10.0)
[2024-10-25 20:49] LABS: HEMOGLOBIN 6.9 GM/dL (11.7-16.9)
[2024-10-25] MEDS ORDERED: ATORVASTATIN CA 10 MG TABLET (FP) PO SCH (22:00)
[2024-10-25] MEDS ORDERED: amLODIPine BESYLATE 10 MG TABLET (FP) PO SCH (22:00)
[2024-10-26] MEDS ORDERED: EPOETIN ALFA-EPBX 10,000 UNIT/ML VIAL SQ ONE (16:47)
== END 2024-10-25 19:56 | disposition left against medical advice (07) ==
LOC: JER 05:38 → JERBED 07:33 → J7W 12:07
PROVIDERS: ADMIT Internal Medicine; ATTEND Internal Medicine
PROC: 30233N1 Transfusion of Nonautologous Red Blood Cells into Peripheral Vein, Percutaneous Approach (ICD-10-PCS; principal; 2024-10-25)
DX: D64.89 Other specified anemias (principal); I12.0 Hypertensive chronic kidney disease with stage 5 chronic kidney disease or end stage renal disease; N18.6 End stage renal disease; Z99.2 Dependence on renal dialysis; F32.A Depression, unspecified; K21.9 Gastro-esophageal reflux disease without esophagitis; E78.5 Hyperlipidemia, unspecified; K57.90 Diverticulosis of intestine, part unspecified, without perforation or abscess without bleeding; Z90.49 Acquired absence of other specified parts of digestive tract; F17.210 Nicotine dependence, cigarettes, uncomplicated
CPT/HCPCS: 36415; 36430; 71045-TC-FY; 80053; 85025; 85610; 85730; 86850; 86900; 86901; 86922; 93005; 93010; 99285-25; G0378; P9058

== ENCOUNTER 2024-11-04 08:47 | Day surgery (SDC) | payer OTHER, BC ==
[2024-11-02 15:02] VITALS: BMI 23.2
[2024-11-04] MEDS ORDERED: LIDOCAINE HCL/PF 2% SDV 5ML VIAL ONE (09:37)
[2024-11-04] MEDS ORDERED: PROPOFOL 100 ML ONE (09:37)
[2024-11-04 11:24] VITALS: PULSE 78; RESP 16; TEMP 98
[2024-11-04 11:35] VITALS: BP 167/88
== END 2024-11-04 11:05 | disposition home or self-care (01) ==
LOC: FASU-ENDO 08:47
PROVIDERS: ATTEND Internal Medicine Gastroenterology
PROC: 0DBP8ZX Excision of Rectum, Via Natural or Artificial Opening Endoscopic, Diagnostic (ICD-10-PCS; principal; 2024-11-04 09:24)
DX: Z12.11 Encounter for screening for malignant neoplasm of colon (principal); D12.8 Benign neoplasm of rectum; K64.1 Second degree hemorrhoids; K57.30 Diverticulosis of large intestine without perforation or abscess without bleeding
CPT/HCPCS: 88305-TC